=== PATIENT | female | born 1950 | race African-American/Black ===

== ENCOUNTER 2018-01-24 10:49 | Emergency (ER) | payer OTHER ==
[2018-01-24 11:31] LABS: Urine Blood 1+ (NEG); Urine Glucose NEGATIVE (NEG); Urine Protein NEGATIVE (NEG); Urine pH 6.5 (5.0-7.0)
[2018-01-24 11:42] LABS: Urine Bacteria <20 /HPF (<20); Urine Culture Reflex Order NOT NEEDED; Urine RBC <5 /HPF (NONE SEEN)
[2018-01-24 12:28] LABS: Absolute Monocytes 0.4 K/uL (0.1-1.3); Absolute Neutrophil 3.6 K/uL (1.8-8.0); Basophils % 1.1 % (0-1.3); Eosinophils % 0.9 % (0-4.4); Hematocrit 40.9 % (36.0-45.0); Lymphocytes % 19.2 % (15.3-44.8); MCH 29.2 pg (27.0-35.0); MCV 87.1 fL (80-100); MPV 8.2 fL (7.6-11.3); Monocytes % 7.6 % (3.3-12.3); RBC Red Blood Cell Count 4.69 M/uL (3.86-4.86)
[2018-01-24 12:31] LABS: ALT/SGPT 15 U/L (12-78); AST/SGOT 16 U/L (15-37); Albumin 3.5 g/dL (3.4-5.0); Alkaline Phosphatase 86 U/L (45-117); Amylase Level 69 U/L (25-115); BUN Blood Urea Nitrogen 7 mg/dL (7-18); Bicarbonate 34 mmol/L (21-32); Bilirubin Direct < 0.1 mg/dL (0-0.2); Bilirubin Total 0.2 mg/dL (0.2-1.0); Glucose Level 95 mg/dL (74-106); Lipase 145 U/L (73-393); Protein, Total 7.8 g/dL (6.4-8.2); Sodium Level 138 mmol/L (136-145)
[2018-01-24 12:32] LABS: Potassium 2.8 mmol/L (3.5-5.1)
[2018-01-24] MEDS ORDERED: POTASSIUM 25 MEQ EFFERV TAB ONE (12:54)
--- NOTE | 2018-01-24 14:09 | RAD REPORT ---
EXAM DESCRIPTION: CT - Abdomen Pelvis W Contrast - 01/24/2018 1:35 pm CLINICAL HISTORY: Abdominal pain. For 1 year COMPARISON: None. TECHNIQUE: Computed axial tomography of the abdomen and pelvis was obtained. 100 cc Isovue-300 is ad ministered intravenously. Oral contrast was given. All CT scans are performed using dose optimization technique as appropriate and may include automated exposure control or mA/KV adjustment according to patient size. FINDINGS: Couple of tiny low-density hepatic lesions are nonspecific but probably represent cysts Spleen, pancreas, adrenals and kidneys appear unremarkable. The appendix is normal caliber. Diverticula stem from the colon without evidence of diverticulitis The gallbladder and uterus have been removed. A small umbilical hernia is present IMPRESSION: No acute abnormality is displayed
--- NOTE | 2018-01-24 14:16 | ER ---
Nurse's Notes [facility] Name: Adrián Espino Age: 67 yrs Sex: Female : 1950 Arrival Date: 01/24/2018 Time: 10:55 Bed 16 Private MD: out of town, doctor Diagnosis: Unspecified abdominal pain;Hypokalemia Presentation: 01/24 11:10 Presenting complaint: Patient states: its been going on for a year now, i have been hj having abdominal pain (diffuse) for a while; i cry sometimes when it hit me; reports nausea and vomiting; denies fever and chills; last BM- 2 days ago; denies diarrhea;. Transition of care: patient was not received from another setting of care. Onset of symptoms was January 24, 2018. Risk Assessment: Do you want to hurt yourself or someone else? Patient reports no desire to harm self or others. Initial Sepsis Screen: Does the patient meet any 2 criteria? No. Patient's initial sepsis screen is negative. Does the patient have a suspected source of infection? No. Patient's initial sepsis screen is negative. Care prior to arrival: None. 11:10 Method Of Arrival: Ambulatory 11:10 Acuity: PATSY 3 hj Triage Assessment: 11:14 General: Appears in no apparent distress. uncomfortable, Behavior is calm, cooperative, hj appropriate for age. Pain: Complains of pain in abdomen. GI: Reports lower abdominal pain, upper abdominal pain, nausea, vomiting. Historical: - Allergies: 11:13 No Known Allergies; hj - Home Meds: 11:13 BP med [Active]; hj - PMHx: 11:13 Hypertension; hj - PSHx: 11:13 Cholecystectomy; hj - Immunization history:: Adult Immunizations up to date. - Social history:: Smoking status: Patient/guardian denies using tobacco, Patient/guardian denies using alcohol. - Ebola Screening: : Patient negative for fever greater than or equal to 101.5 degrees Fahrenheit, and additional compatible Ebola Virus Disease symptoms Patient denies exposure to infectious person Patient denies travel to an Ebola-affected area in the 21 days before illness onset. Screenin:14 Abuse screen: Denies threats or abuse. Denies injuries from another. Nutritional hj screening: No deficits noted. Tuberculosis screening: No symptoms or risk factors identified. Fall Risk None identified. Assessment: 11:15 GI: Bowel sounds present X 4 quads. Abd is soft and non tender. 12:08 Reassessment: pt finished oral contrast; cardiopulmonary technologist chief informed;. hj 13:00 Reassessment: Patient and/or family updated on plan of care and expected duration. Pain tl3 level reassessed. Patient is alert, oriented x 3, equal unlabored respirations, skin warm/dry/pink. Vital Signs: 11:16 BP 166 / 80; Pulse 67; Resp 18; Temp 98.2(O); Pulse Ox 100% on R/A; Weight 68.04 kg; hj Height 5 ft. 2 in. (157.48 cm); Pain 7/10; 13:00 BP 185 / 61; Pulse 59; Resp 18; Pulse Ox 94% ; tl3 14:00 BP 141 / 102; Pulse 50; Resp 16; Pulse Ox 100% ; tl3 11:16 Body Mass Index 27.44 (68.04 kg, 157.48 cm) ED Course: 10:55 Patient arrived in ED. mr 10:55 out of town, doctor is Private Physician. mr 11:03 Farhan Turner PA is PHCP. [facility] 11:03 Virgilio Zhao MD is Attending Physician. [facility] 11:09 Vasyl Cruz, ANIBAL is Primary Nurse. 11:12 Triage completed. hj 11:15 Arm band placed on right wrist. hj 11:16 Patient has correct armband on for positive identification. Placed in gown. Bed in low hj position. Call light in reach. Side rails up X 1. Adult w/ patient. 12:00 Initial lab(s) drawn, by me, sent to lab. Inserted saline lock: 22 gauge in right hj antecubital area, using aseptic technique. Blood collected. 13:33 CT completed. Patient moved to CT via wheelchair. Patient moved back from CT. cw1 13:35 CT Abd/Pelvis - W/Contrast In Process Unspecified. EDMS 14:00 No provider procedures requiring assistance completed. tl3 14:00 IV discontinued, intact, bleeding controlled, No redness/swelling at site. Pressure tl3 dressing applied. 14:15 Mauricio Santamaria MD is Referral Physician. [facility] Administered Medications: 12:44 Drug: Potassium Chloride 40 mEq Route: PO; soledad 14:33 Follow up: Response: No adverse reaction tl3 Outcome: 14:00 Discharged to home ambulatory. tl3 14:00 Condition: stable 14:00 Discharge instructions given to patient, family, Instructed on discharge instructions, follow up and referral plans. medication usage, Demonstrated understanding of instructions, follow-up care, medications, Prescriptions given X 1. 14:15 Discharge ordered by MD. yarbrough 14:45 Patient left the ED. tl3 Signatures: Dispatcher [employer] EDMS Farhan Turner PA PA jmm Rivera, Maria mr Sparks, Elzbieta cw1 Vasyl Cruz, RN RN Edelmira Chin RN RN tl3
--- NOTE | 2018-01-24 14:16 | EDPHYS ---
Physician Documentation [facility] Name: Adrián Espino Age: 67 yrs Sex: Female : 1950 Arrival Date: 01/24/2018 Time: 10:55 Bed 16 Private MD: out of town, doctor ED Physician Virgilio Zhao HPI: 01/24 11:34 This 67 yrs old Black Female presents to ER via Ambulatory with complaints of Abdominal jmm Pain, Nausea. 11:34 The patient presents with abdominal pain that is diffuse. Onset: The symptoms/episode jmm began/occurred today. The symptoms do not radiate. Associated signs and symptoms: Pertinent negatives: nausea and vomiting, diarrhea, fever. This is 67 year old female with a history of htn that presents to the ED with generalized abdominal pain which has been chronic over the past year. The son states the pain intensified today. Denies vomiting, diarrhea, fever. Denies recent travel or recent abx use. . Historical: - Allergies: 11:13 No Known Allergies; hj - Home Meds: 11:13 BP med [Active]; hj - PMHx: 11:13 Hypertension; hj - PSHx: 11:13 Cholecystectomy; hj - Immunization history:: Adult Immunizations up to date. - Social history:: Smoking status: Patient/guardian denies using tobacco, Patient/guardian denies using alcohol. - Ebola Screening: : Patient negative for fever greater than or equal to 101.5 degrees Fahrenheit, and additional compatible Ebola Virus Disease symptoms Patient denies exposure to infectious person Patient denies travel to an Ebola-affected area in the 21 days before illness onset. ROS: 11:34 Constitutional: Negative for fever, chills, and weight loss. jmm 11:34 Abdomen/GI: Positive for abdominal pain. 11:34 Back: Negative for radiated pain. 11:34 All other systems are negative. Exam: 11:34 Constitutional: This is a well developed, well nourished patient who is awake, alert, jmm and in no acute distress. Head/Face: atraumatic. Chest/axilla: Normal chest wall appearance and motion. Cardiovascular: Regular rate and rhythm. No edema appreciated Respiratory: Normal respirations, no respiratory distress appreciated Abdomen/GI: Non distended, soft Back: Normal ROM Skin: General appearance color normal MS/ Extremity: Moves all extremities, no obvious deformities appreciated, no edema noted to the lower extremities Neuro: Awake and alert, normal gait 11:34 Abdomen/GI: Inspection: scar(s), are noted in the right upper quadrant, Bowel sounds: normal, Palpation: abdomen is soft and non-tender, in all quadrants. Vital Signs: 11:16 BP 166 / 80; Pulse 67; Resp 18; Temp 98.2(O); Pulse Ox 100% on R/A; Weight 68.04 kg; hj Height 5 ft. 2 in. (157.48 cm); Pain 7/10; 13:00 BP 185 / 61; Pulse 59; Resp 18; Pulse Ox 94% ; tl3 14:00 BP 141 / 102; Pulse 50; Resp 16; Pulse Ox 100% ; tl3 11:16 Body Mass Index 27.44 (68.04 kg, 157.48 cm) MDM: 11:32 Patient medically screened. [facility] 14:14 Data reviewed: vital signs, nurses notes, lab test result(s), radiologic studies, CT [facility] scan. Counseling: I had a detailed discussion with the patient and/or guardian regarding: the historical points, exam findings, and any diagnostic results supporting the discharge/admit diagnosis, lab results, radiology results, to return to the emergency department if symptoms worsen or persist or if there are any questions or concerns that arise at home. 14:14 ED course: patient's ct does not show any acute findings, the patient has no pain on [facility] palpation of her abdomen. patient's potassium replaced in the ED. Patient is encouraged to follow up with GI for further evaluation. otherwise given strict return precautions. family and patient understood and agree with the plan of care. . 01/24 11:24 Order name: Urine Culture [facility] 01/24 11:24 Order name: Urine Microscopic Only; Complete Time: 12:06 [facility] 01/24 11:29 Order name: Urine Dipstick--Ancillary (enter results); Complete Time: 11:38 [facility] 01/24 11:33 Order name: Amylase, Serum; Complete Time: 12:41 [facility] 01/24 11:33 Order name: Basic Metabolic Panel; Complete Time: 12:41 [facility] 01/24 11:33 Order name: CBC with Diff; Complete Time: 12:41 [facility] 01/24 11:33 Order name: Creatinine for Radiology; Complete Time: 12:41 [facility] 01/24 11:33 Order name: Hepatic Function; Complete Time: 12:41 [facility] 01/24 11:33 Order name: Lipase; Complete Time: 12:41 [facility] 01/24 11:33 Order name: IV Saline Lock; Complete Time: 12:04 [facility] 01/24 11:33 Order name: Labs collected and sent; Complete Time: 12:04 [facility] 01/24 11:33 Order name: Urine Dipstick-Ancillary (obtain specimen); Complete Time: 11:36 [facility] 01/24 11:33 Order name: CT Abd/Pelvis - W/Contrast; Complete Time: 14:10 [facility] Administered Medications: 12:44 Drug: Potassium Chloride 40 mEq Route: PO; 14:33 Follow up: Response: No adverse reaction tl3 Disposition: 01/24/18 14:15 Discharged to Home. Impression: Unspecified abdominal pain, Hypokalemia. - Condition is Stable. - Discharge Instructions: Abdominal Pain, Adult, Hypokalemia. - Prescriptions for Pepcid 20 mg Oral Tablet - take 1 tablet by ORAL route once daily; 20 tablet. - Medication Reconciliation Form, Thank You Letter, Antibiotic Education, Prescription Opioid Use form. - Follow up: Mauricio Santamaria MD; When: 2 - 3 days; Reason: Continuance of care. Addendum: 02/01/2018 20:42 Co-signature as Attending Physician, Virgilio Zhao MD I agree with the assessment and k dr plan of care. Signatures: Dispatcher [employer] EDMN Virgilio Zhao MD MD kdr Mickail, Joel, PA PA [facility] Vasyl Cruz RN RN Edelmira Whitten, ANIBAL RN tl3 Corrections: (The following items were deleted from the chart) 01/24 14:15 14:15 01/24/2018 14:15 Discharged to Home. Impression: Unspecified abdominal pain. [facility] Condition is Stable. Forms are Medication Reconciliation Form, Thank You Letter, Antibiotic Education, Prescription Opioid Use. Follow up: Mauricio Santamaria; When: 2 - 3 days; Reason: Continuance of care. [facility] 14:45 14:15 01/24/2018 14:15 Discharged to Home. Impression: Unspecified abdominal pain; tl3 Hypokalemia. Condition is Stable. Forms are Medication Reconciliation Form, Thank You Letter, Antibiotic Education, Prescription Opioid Use. Follow up: Mauricio Santamaria; When: 2 - 3 days; Reason: Continuance of care. linnea
== END 2018-01-24 14:45 | disposition home or self-care (01) ==
LOC: ER 10:49
DX: E87.6 Hypokalemia (principal); I10 Essential (primary) hypertension
CPT/HCPCS: 36415; 74177; 80048; 80076; 81003; 81015; 82150; 83690; 85025; 87086; 87088; 99284